=== PATIENT | female | born 1990 ===

== ENCOUNTER 2024-01-12 19:06 | Inpatient (IN) | payer OTHER ==
[2024-01-12] MEDS ORDERED: Tranexamic Acid IN NACL,ISO-OS 1,000 MG in Premix Bag 1 BAG IV PRN (19:17)
[2024-01-12] MEDS ORDERED: Carboprost Tromethamine 250 MCG/1 mL Vial IM PRN (19:17)
[2024-01-12] MEDS ORDERED: Water For Irrigation,Sterile 1,000 ML Container IRR PRN (19:17)
[2024-01-12] MEDS ORDERED: Methylergonovine 0.2 MG/1 ML Amp IM PRN (19:17)
[2024-01-12] MEDS ORDERED: Butorphanol 2 MG/ML SDV IVPUSH PRN (19:17)
[2024-01-12] MEDS ORDERED: Sodium Chloride 0.9% 10 ML Syringe FLUSH PRN (19:17)
[2024-01-12] MEDS ORDERED: Misoprostol 25 MCG (1/4 of 100 MCG) Tab VAG PRN ×2 (19:17)
[2024-01-12] MEDS ORDERED: Lidocaine 1% 50 ML MDV INJECT PRN (19:17)
[2024-01-12] MEDS ORDERED: Sodium Chloride 0.9% 2.5 ML Syringe FLUSH PRN (19:17)
[2024-01-12] MEDS ORDERED: Terbutaline 1 MG/ML SDV SUBCUT PRN (19:17)
[2024-01-12] MEDS ORDERED: Misoprostol 200 MCG Tab PO PRN (19:17)
[2024-01-12] MEDS ORDERED: Sodium Chloride 0.9% 20 ML SDV IV PRN (19:17)
[2024-01-12] MEDS ORDERED: Ondansetron 4 MG/2 ML SDV IVPUSH PRN (19:23)
[2024-01-12] MEDS: Misoprostol 25 MCG (1/4 of 100 MCG) Tab PO SCH (20:15)
[2024-01-12 20:18] LABS: HEMATOCRIT 37.8 % (37.0-47.0); HEMOGLOBIN 13.3 g/dL (12.0-16.0); MEAN CORPUSCULAR HEMOGLOBIN 31.2 pg (28.0-32.0); MEAN CORPUSCULAR HGB CONC 35.2 g/dL (32.0-36.0); MEAN CORPUSCULAR VOLUME 88.7 fL (83.0-99.0); MEAN PLATELET VOLUME 10.2 fL (9.4-12.3); PLATELET COUNT,PLT 251 K/uL (150-400); RED BLOOD CELL COUNT 4.26 M/uL (4.10-5.30); WHITE BLOOD CELL COUNT,WBC 14.07 K/uL (3.9-11.3)
[2024-01-13] MEDS ORDERED: Phenylephrine HCl In 0.9% NaCl 1 MG/10 ML Syringe IVPUSH PRN (08:15)
[2024-01-13] MEDS ORDERED: ePHEDrine 50 MG/ML SDV IVPUSH PRN ×2 (08:15)
[2024-01-13] MEDS ORDERED: Misoprostol 50 MCG (1/2 of 100 MCG) Tab VAG PRN (08:27)
[2024-01-13] MEDS ORDERED: Misoprostol 25 MCG (1/4 of 100 MCG) Tab VAG PRN (08:45)
[2024-01-13] MEDS: Lactated Ringers 1,000 ML IV SCH (15:05)
[2024-01-13] MEDS ORDERED: Bupivacaine 0.5% 10 ML SDV ONE ×3 (15:48→20:38)
[2024-01-13] MEDS ORDERED: fentaNYL 100 MCG/2 ML SDV ONE ×2 (18:36→20:38)
[2024-01-13] MEDS ORDERED: Lidocaine 2% 5 ML SDV ONE (18:37)
[2024-01-13] MEDS: hydrOXYzine Pamoate 25 MG Cap PO ONE (22:05)
[2024-01-14] MEDS: Oxytocin/0.9 % Sodium Chloride 30 UNIT/500 ML BAG IV SCH ×2 (00:06→02:55)
[2024-01-14] MEDS: Ropivacaine HCl/PF 400 MG in Premix Bag 1 BAG EPIDUR SCH (01:06)
[2024-01-14] MEDS ORDERED: Lanolin 100% Cream 7 GM Tube TOP PRN (03:19)
[2024-01-14] MEDS ORDERED: Tranexamic Acid IN NACL,ISO-OS 1,000 MG in Premix Bag 1 BAG IV PRN (03:19)
[2024-01-14] MEDS ORDERED: Misoprostol 200 MCG Tab PO PRN (03:19)
[2024-01-14] MEDS ORDERED: Methylergonovine 0.2 MG/1 ML Amp IM PRN (03:19)
[2024-01-14 03:53] LABS: PH,UMBILICAL ARTERIAL 7.183 (7.18-7.38); PH,UMBILICAL VENOUS 7.297 (7.25-7.45)
[2024-01-14] MEDS: LORazepam 0.5 MG Tab PO PRN (04:04)
[2024-01-14] MEDS: Acetaminophen 500 MG Tab PO PRN (04:06)
[2024-01-14] MEDS: Witch Hazel Medicated Pads 40/Jar TOP PRN (06:09)
[2024-01-14] MEDS: Benzocaine/Menthol 20%-0.5% Spray 78 GM Cannister TOP PRN (06:10)
[2024-01-14] MEDS: Levothyroxine 25 MCG Tab PO SCH (07:53)
[2024-01-14] MEDS: Prenatal Multivitamin with Calcium/Folic Acid/Iron Tab PO SCH (08:01)
[2024-01-14] MEDS: buPROPion 150 MG Tab.ER PO SCH (08:22)
[2024-01-14] MEDS: Docusate Sodium 100 MG Cap PO PRN (14:36)
[2024-01-14] MEDS: Ibuprofen 800 MG Tab PO PRN (20:17)
[2024-01-15 07:24] LABS: HEMATOCRIT 35.2 % (37.0-47.0)
== END 2024-01-15 14:25 | disposition home or self-care (01) | DRG 807 ==
LOC: MW.OBCHECK 19:06 → MW.OB 19:06 → MW.OBCHECK 19:16 → MW.OB 19:17 → OBSVTOIN 01-14 02:49 → MW.OB 01-14 06:35
PROVIDERS: ADMIT Obstetrics & Gynecology; ATTEND Obstetrics & Gynecology
PROC: 10E0XZZ Delivery of Products of Conception, External Approach (ICD-10-PCS; principal; 2024-01-14)
PROC: 0KQM0ZZ Repair Perineum Muscle, Open Approach (ICD-10-PCS; 2024-01-14)
PROC: 3E033VJ Introduction of Other Hormone into Peripheral Vein, Percutaneous Approach (ICD-10-PCS; 2024-01-14)
PROC: 3E0P7VZ Introduction of Hormone into Female Reproductive, Via Natural or Artificial Opening (ICD-10-PCS; 2024-01-14)
PROC: 3E0R3BZ Introduction of Anesthetic Agent into Spinal Canal, Percutaneous Approach (ICD-10-PCS; 2024-01-14)
PROC: 00HU33Z Insertion of Infusion Device into Spinal Canal, Percutaneous Approach (ICD-10-PCS; 2024-01-14)
DX: O99.344 Other mental disorders complicating childbirth (principal); Z37.0 Single live birth; F41.9 Anxiety disorder, unspecified; Z3A.39 39 weeks gestation of pregnancy; O99.284 Endocrine, nutritional and metabolic diseases complicating childbirth; E03.9 Hypothyroidism, unspecified; Z79.890 Hormone replacement therapy; O70.1 Second degree perineal laceration during delivery; O77.0 Labor and delivery complicated by meconium in amniotic fluid
CPT/HCPCS: 01967; 36415; 59025; 59409; 82803; 85014; 85018; 85027; 86592; 86850; 86900; 86901; A9270-GY; J0665; J2590; J2795; J3010; J3490; J7120